=== PATIENT | female | born 1955 | race Caucasian/White ===

== ENCOUNTER → 2019-07-19 | Outpatient (CLI) | payer MEDICARE, MEDICAID ==
[2019-07-19 07:48] LABS: BUN/CREATININE RATIO 13; CARBON DIOXIDE 27 MMOL/L (21-32); CHLORIDE 97 MMOL/L (98-107); CREATININE SERUM 0.53 MG/DL (0.60-1.30); GFR ESTIMATED > 60; GLUCOSE 120 MG/DL (70-105); POTASSIUM 3.9 MMOL/L (3.6-5.0); SODIUM 137 MMOL/L (135-145)
[2019-07-19 07:49] LABS: ALANINE AMINOTRANSFERASE 21 U/L (0-55); ALBUMIN 4.5 GM/DL (3.2-4.5); ALKALINE PHOSPHATASE 88 U/L (40-136); BILIRUBIN,TOTAL 0.8 MG/DL (0.1-1.0); CALCIUM 9.8 MG/DL (8.5-10.1); TOTAL PROTEIN 7.3 GM/DL (6.4-8.2)
[2019-07-19 15:30] LABS: CHOLESTEROL 188 MG/DL (< 200); HDL CHOLESTEROL 78 MG/DL (40-60); TRIGLYCERIDES 137 MG/DL (<150); VLDL CHOLESTEROL 27 MG/DL (5-40)
== END ==
LOC: LAB FS 07:07
PROVIDERS: ATTEND Family Medicine
DX: I10 Essential (primary) hypertension (principal)
CPT/HCPCS: 36415; 80053; 80061

== ENCOUNTER → 2020-04-08 | Outpatient (CLI) | payer MEDICARE, MEDICAID ==
[2020-04-08 14:28] LABS: BUN/CREATININE RATIO 12; CALCIUM 9.6 MG/DL (8.5-10.1); CARBON DIOXIDE 28 MMOL/L (21-32); CHLORIDE 84 MMOL/L (98-107); CREATININE SERUM 0.51 MG/DL (0.60-1.30); GFR ESTIMATED > 60; GLUCOSE 129 MG/DL (70-105); POTASSIUM 3.1 MMOL/L (3.6-5.0); SODIUM 130 MMOL/L (135-145)
[2020-04-08 14:29] LABS: ALANINE AMINOTRANSFERASE 33 U/L (0-55); ALBUMIN 4.9 GM/DL (3.2-4.5); ALKALINE PHOSPHATASE 99 U/L (40-136); BILIRUBIN,TOTAL 0.7 MG/DL (0.1-1.0); TOTAL PROTEIN 7.6 GM/DL (6.4-8.2)
[2020-04-08 15:46] LABS: CHOLESTEROL 253 MG/DL (< 200); TRIGLYCERIDES 89 MG/DL (<150); VLDL CHOLESTEROL 18 MG/DL (5-40)
[2020-04-08 16:20] LABS: HDL CHOLESTEROL 128 MG/DL (40-60)
== END ==
LOC: LAB FS 13:06
PROVIDERS: ATTEND Family Medicine
DX: I10 Essential (primary) hypertension (principal); R73.9 Hyperglycemia, unspecified
CPT/HCPCS: 36415; 80053; 80061; 83036

== ENCOUNTER 2020-11-25 14:44 | Emergency (ER) | payer MEDICARE, MEDICAID ==
[~2020-11-25] VITALS: Ht 152.4 cm; Wt 46.4 kg
[2020-11-25] MEDS ORDERED: MONT10TA32 (15:04)
[2020-11-25] MEDS ORDERED: AMLO-251 (15:04)
[2020-11-25] MEDS ORDERED: HYDR25TA4 (15:04)
[2020-11-25] MEDS ORDERED: TRAZ-227 (15:04)
[2020-11-25] MEDS ORDERED: CETI10TA17 (15:04)
[2020-11-25] MEDS ORDERED: FLUT16SP22 (15:04)
[2020-11-25] MEDS ORDERED: HYDROcodone/APAP 5 MG/325 MG (LORTAB) TAB ONE (15:19)
[2020-11-25] MEDS ORDERED: HYDROcodone/APAP 5 MG/325 MG (LORTAB) TAB PO ONE (15:30)
--- NOTE | 2020-11-25 15:42 | Diagnostic Imaging Report ---
PROCEDURE: CT head, face, and cervical spine without contrast. TECHNIQUE: Multiple contiguous axial images were obtained through the head, neck, and facial bones without the use of intravenous contrast. Sagittal and coronal reformations through the cervical spine and facial bones were also performed. Auto Exposure Controls were utilized during the CT exam to meet ALARA standards for radiation dose reduction. INDICATION: Fall with head, neck, and facial injuries. COMPARISON: No prior studies are available for comparison. FINDINGS: CT HEAD: The ventricles and sulci are within normal limits. No sulcal effacement or midline shift is identified. No acute intra-axial or extra-axial hemorrhage is detected. Cisterns are patent. Visualized paranasal sinuses are clear. IMPRESSION: No acute intracranial process is detected. CT CERVICAL SPINE: Curvature and alignment of the cervical spine is normal. There is multilevel degenerative disc disease as well as degenerative facet disease. There is variable disc space narrowing, greatest at C5-C6 and C6-C7 levels with disc space narrowing and marginal spurring. Prevertebral tissues are normal. No fractures are seen. Odontoid is intact. IMPRESSION: Cervical spondylosis. No acute bony abnormality is detected. CT FACE: There is a fracture involving the right aspect of the mandible in the region of the mandibular condyle. There appears to be dislocation of the condyle anteriorly from the TMJ. Mandibular rami are intact. Left temporomandibular joint is intact. Zygomatic arches appear to be intact. Maxillary sinus faye as well as nasal bones and orbital faye appear to be intact. Both globes are unremarkable. Paranasal sinuses are clear. IMPRESSION: Fracture involving the right mandibular condyle with dislocation of the right mandibular condyle anteriorly from the TMJ. No other facial bone fracture is detected. Dictated by: Dictated on workstation # [id number]
--- NOTE | 2020-11-25 16:02 | ED Fall/Injury ---
General Chief Complaint: Upper Extremity Stated Complaint: LT ARM INJ Nursing Triage Note: Pt presents to ED reporting sent from [facility] for re-evaluation of L upper arm. Pt presents wearing a sling and having had an xray [employer]. Pt slipped on her rug and fell in the night at 0130. Pt also struck right side of jaw but denies hitting head. Pain at mid humerus shaft and bruising noted. Source: patient Exam Limitations: no limitations History of Present Illness Date Seen by Provider: Nov 25, 2020 Time Seen by Provider: 15:10 Initial Comments Here from [facility] where the they had concerns about shoulder fracture and facial injury. Apparently patient fell very early this morning about 1:30 AM after slipping on a carpet. She landed on her left elbow and her face. She has abrasion to her chin. Denies loss of consciousness. Complains of severe pain to the left shoulder and to the right jaw. They tried x-rays at the urgent care and thought they saw fracture but were not sure so sent her here for further evaluation including the head and face. Occurred: this morning Severity: moderate Injuries/Pain Location: face, upper extremity Context: slipped Loss of Consciousness: no loss of consciousness Modifying Factors: Improves With Immobilization; Worse With Movement Associated Symptoms (Fall): No Headache; Muscle Spasms, Neck Pain; No Shortness of Air Allergies and Home Medications Allergies Coded Allergies: Penicillins (Unverified Adverse Reaction, Unknown, 11/25/20) lisinopril (Unverified Adverse Reaction, Unknown, 11/25/20) Home Medications Hydrocodone Bit/Acetaminophen 1 Tab Tab, 1 TAB PO Q6H Prescribed by: SHANNAN BURKETT on 11/25/20 1614 Patient Home Medication List Home Medication List Reviewed: Yes Review of Systems Review of Systems Constitutional: see HPI; No chills, No fever Eyes: No Symptoms Reported Ears, Nose, Mouth, Throat: mouth pain, mouth swelling; denies loose teeth, denies throat pain Respiratory: No cough, No short of breath Cardiovascular: no symptoms reported Gastrointestinal: No abdominal pain, No nausea, No vomiting Genitourinary: no symptoms reported Musculoskeletal: see HPI, joint pain, muscle pain Skin: change in color, lesions Psychiatric/Neurological: Denies Headache, Denies Weakness Past Aykahlt-Zjbqzu-Gmxrml Hx Patient Social History Tobacco Use?: Yes Tobacco type used: Cigarettes Smoking Status: Current Everyday Smoker Substance use?: No Alcohol Use?: Yes Alcohol type: Beer Alcohol Frequency: Couple times a week Pt feels they are or have been: No Past Medical History Surgery/Hospitalization HX: C-sections Surgeries: Yes Section Cardiac: Yes Hypertension Family Medical History Reviewed Nursing Family Hx Physical Exam Vital Signs Vital Signs - First Documented 11/25/20 14:50 Temp 36.3 Pulse 122 Resp 20 B/P (MAP) 121/93 (102) Pulse Ox 95 O2 Delivery Room Air Capillary Refill : Less Than 3 Seconds Height, Weight, BMI Height: '" Weight: lbs. oz. kg; 19.00 BMI Method: General Appearance: WD/WN, mild distress HEENT: PERRL/EOMI, pharynx normal, other (Tenderness to the right TMJ with difficulty with range of motion of mouth to full opening due to pain. Pain with biting down. Denies any loose teeth or pain along any of the teeth. No obvious intraoral injuries.) Neck: full range of motion, supple, normal inspection Cardiovascular: regular rate, rhythm, no murmur Respiratory: no accessory muscle use, wheezing (Few scattered) Gastrointestinal: non tender, soft Back: normal inspection, no CVA tenderness, no vertebral tenderness Extremities: other (Very tender at the area of the proximal humerus on the left. Bruising noted in this area. Sensation, circulation and movement are intact to the left hand with good strength.) Neurologic/Psychiatric: alert, oriented x 3 Skin: warm/dry, ecchymosis (Left proximal humerus), other (Few abrasions to the chin) Farideh Coma Score Best Eye Response: (4) Open Spontaneously Best Verbal Response: (5) Oriented Best Motor Response: (6) Obeys Commands Progress/Results/Core Measures Results/Orders My Orders Orders - SHANNAN BURKETT MD Ct Head/Face/Cervical Wo (11/25/20 15:13) Hydrocodone/Apap 5/325 Tablet (Lortab 5 (11/25/20 15:30) Hydrocodone/Apap 5/325 Tablet (Lortab 5 (11/25/20 15:19) Humerus 2 View Left (11/25/20 15:13) Dipht,Pertuss(Acell),Tet Adult (Boostrix (11/25/20 16:15) Medications Given in ED Current Medications Medications Dose Ordered Sig/Stuart Route Start Time Stop Time Status Last Admin Dose Admin Acetaminophen/ Hydrocodone Bitart 1 ea ONCE ONCE PO 11/25/20 15:30 11/25/20 15:31 DC 11/25/20 15:21 1 EA Diphtheria/ Tetanus/Acell Pertussis 0.5 ml ONCE ONCE IM 11/25/20 16:15 11/25/20 16:16 DC 11/25/20 16:10 0.5 ML Vital Signs/I&O 11/25/20 11/25/20 14:50 15:21 Temp 36.3 36.3 Pulse 122 Resp 20 B/P (MAP) 121/93 (102) Pulse Ox 95 O2 Delivery Room Air Blood Pressure Mean: 102 Progress Progress Note : Progress Note Seen and evaluated. X-ray left humerus and CT scan of the head, face and neck. 1550: Humerus is obviously fractured. I did discuss the case with Dr. Cordero. We will go ahead and just sling it. There is some displacement. Patient was given hydrocodone 5/325 and that seems to be helping. Pending CT scan. Dr. Cordero will see the patient or she can follow-up locally with Kush Lacy APRN. This is based on patient's preference. 1700: I did discuss the case with Dr. Barbara miranda. He will see the patient in follow-up on or Monday. Discussed all of this with the patient and her son. Discharged home with return precautions. Patient verbalized understanding instructions and agreement with plan. Diagnostic Imaging Diagonstic Imaging: CT Plain Films/CT/US/NM/MRI: facial bones, c-spine, head Comments [facility], [place] NAME: BINDU TIPTON [facility] REC#: [id number] PT STATUS: REG ER : 1955 PHYSICIAN: SHANNAN BURKETT MD ADMIT DATE: 11/25/20/ER FS Signed Date of Exam:11/25/20 CT HEAD/FACE/CERVICAL WO PROCEDURE: CT head, face, and cervical spine without contrast. TECHNIQUE: Multiple contiguous axial images were obtained through the head, neck, and facial bones without the use of intravenous contrast. Sagittal and coronal reformations through the cervical spine and facial bones were also performed. Auto Exposure Controls were utilized during the CT exam to meet ALARA standards for radiation dose reduction. INDICATION: Fall with head, neck, and facial injuries. COMPARISON: No prior studies are available for comparison. FINDINGS: CT HEAD: The ventricles and sulci are within normal limits. No sulcal effacement or midline shift is identified. No acute intra-axial or extra-axial hemorrhage is detected. Cisterns are patent. Visualized paranasal sinuses are clear. IMPRESSION: No acute intracranial process is detected. CT CERVICAL SPINE: Curvature and alignment of the cervical spine is normal. There is multilevel degenerative disc disease as well as degenerative facet disease. There is variable disc space narrowing, greatest at C5-C6 and C6-C7 levels with disc space narrowing and marginal spurring. Prevertebral tissues are normal. No fractures are seen. Odontoid is intact. IMPRESSION: Cervical spondylosis. No acute bony abnormality is detected. CT FACE: There is a fracture involving the right aspect of the mandible in the region of the mandibular condyle. There appears to be dislocation of the condyle anteriorly from the TMJ. Mandibular rami are intact. Left temporomandibular joint is intact. Zygomatic arches appear to be intact. Maxillary sinus faye as well as nasal bones and orbital faye appear to be intact. Both globes are unremarkable. Paranasal sinuses are clear. IMPRESSION: Fracture involving the right mandibular condyle with dislocation of the right mandibular condyle anteriorly from the TMJ. No other facial bone fracture is detected. Dictated by: Dictated on workstation # [id number] Dict: 11/25/20 1532 Trans: 11/25/20 1602 [id number] Interpreted by: JIN VIZCAINO MD Electronically signed by: JIN VIZCAINO MD 11/25/20 1602 Diagonstic Imaging: Xray Plain Films/CT/US/NM/MRI: other (Left humerus) Comments Proximal fracture that is displaced. Departure Impression Primary Impression: Fracture of humerus, proximal, left, closed Qualified Codes: S42.202A - Unspecified fracture of upper end of left humerus, initial encounter for closed fracture Additional Impression: Fracture of right side of mandible Qualified Codes: S02.611A - Fracture of condylar process of right mandible, initial encounter for closed fracture Disposition: 01 HOME, SELF-CARE Condition: Stable Departure-Patient Inst. Decision time for Depature: 16:11 Referrals: MOUNA MOROCHO MD (PCP/Family) Primary Care Physician HELEN LACY MATTHEW DDS SCHWAB, TERRY D MD Patient Instructions: Jaw Fracture (DC), Upper Arm Fracture Add. Discharge Instructions: All discharge instructions reviewed with patient and/or family. Voiced understanding. Take medication as directed. Use sling at all times except for when showering. You may put ice packs over the areas of concern to the shoulder and face 20 minutes/h as needed to reduce swelling. You will need to follow-up locally with Kush Lacy or with Dr. Cordero in [place]. Call tomorrow for appointment for your broken arm. Call Dr. Sanchez's office in the morning for appointment for tomorrow or Monday for recheck of the jaw fracture. Let them know the case was discussed with him and he wants to see you tomorrow or Monday. Return for worse pain, fever, vomiting, weakness, breathing problems or other concerns as needed. You need to stay on a liquid or very soft diet so that you have no need to chew as this will increase the pain related to the jaw. Scripts Hydrocodone Bit/Acetaminophen (HYDROcodone/APAP 5 MG/325 MG TAB) 1 Tab Tab 1 TAB PO Q6H for Pain, #20 TAB 0 Refills Prov: SHANNAN BURKETT MD 11/25/20 Copy Copies To 1: HELEN LACY Copies To 2: JULIET SANCHEZ DDS, TIMOTHY D MD Nov 25, 2020 16:02
[2020-11-25] MEDS ORDERED: ACHD5005 PO (16:14)
[2020-11-25] MEDS ORDERED: TETANUS,DIPTH,PERTUSS P/F (BOOSTRIX) 0.5 ML VIAL IM ONE (16:15)
[2020-11-25 17:05] VITALS: BP 118/85
--- NOTE | 2020-11-25 19:30 | Diagnostic Imaging Report ---
CLINICAL HISTORY: Fall. Left arm pain. COMPARISON: None. TECHNIQUE: 2 views of the left humerus. FINDINGS: Acute transverse fracture is seen involving the proximal metadiaphysis of the left humerus. No acute fracture is seen in the included left acromion. IMPRESSION: Acute transverse fracture involving the proximal metadiaphysis of the left humerus. The evaluation is suboptimal as no true lateral was performed. Consider dedicated left shoulder radiographs to better evaluate. Dictated by: Dictated on workstation # [id number]
== END 2020-11-25 17:05 | disposition home or self-care (01) ==
LOC: EDUNIT# 14:44 → ER FS 14:45
DX: S42.202A Unspecified fracture of upper end of left humerus, initial encounter for closed fracture (principal); S02.611A Fracture of condylar process of right mandible, initial encounter for closed fracture; I10 Essential (primary) hypertension; R06.2 Wheezing; Z23 Encounter for immunization; F17.210 Nicotine dependence, cigarettes, uncomplicated; W01.10XA Fall on same level from slipping, tripping and stumbling with subsequent striking against unspecified object, initial encounter
CPT/HCPCS: 70450; 70486; 72125; 73060; 99283; A4565; 90715

== ENCOUNTER → 2020-12-21 | Outpatient (CLI) | payer MEDICARE, MEDICAID ==
[~2020-12-21] MED LIST: ACHD5005 PO; AMLO-251; CETI10TA17; FLUT16SP22; HYDR25TA4; MONT10TA32; TRAZ-227
[2020-12-21 17:12] LABS: CALCIUM 9.8 MG/DL (8.5-10.1); CREATININE SERUM 0.43 MG/DL (0.60-1.30); POTASSIUM 3.8 MMOL/L (3.6-5.0)
== END ==
LOC: LAB FS 16:26
PROVIDERS: ATTEND Family Medicine
DX: E87.6 Hypokalemia (principal)
CPT/HCPCS: 36415; 80048

== ENCOUNTER → 2021-01-27 | Outpatient (CLI) | payer MEDICARE, MEDICAID ==
[2021-01-27 16:29] LABS: POTASSIUM 2.6 MMOL/L (3.6-5.0)
[2021-01-27 16:30] LABS: CALCIUM 9.4 MG/DL (8.5-10.1); CREATININE SERUM 0.52 MG/DL (0.60-1.30)
== END ==
LOC: LAB FS 14:58
PROVIDERS: ATTEND Family Medicine
DX: E87.6 Hypokalemia (principal)
CPT/HCPCS: 36415; 80048

== ENCOUNTER → 2021-03-08 | Outpatient (CLI) | payer MEDICARE, MEDICAID ==
[~2021-03-08] MED LIST changes: -AMLO-251; +AMLO-251 PO; -HYDR25TA4; +HYDR25TA4 PO; +POTA10TA PO; -TRAZ-227; +TRAZ-227 PO
[2021-03-08 16:20] LABS: CALCIUM 9.7 MG/DL (8.5-10.1); CREATININE SERUM 0.56 MG/DL (0.60-1.30); POTASSIUM 4.4 MMOL/L (3.6-5.0)
== END ==
LOC: LAB FS 15:46
PROVIDERS: ATTEND Registered Nurse Emergency
DX: E87.6 Hypokalemia (principal)
CPT/HCPCS: 36415; 80048

== ENCOUNTER → 2021-03-26 | Outpatient (CLI) | payer MEDICARE, MEDICAID ==
[2021-03-26 15:30] LABS: CALCIUM 9.6 MG/DL (8.5-10.1); CREATININE SERUM 0.52 MG/DL (0.60-1.30); POTASSIUM 3.3 MMOL/L (3.6-5.0)
== END ==
LOC: LAB FS 14:59
PROVIDERS: ATTEND Family Medicine
DX: E87.6 Hypokalemia (principal)
CPT/HCPCS: 36415; 80048

== ENCOUNTER → 2021-05-27 | Outpatient (CLI) | payer MEDICARE, MEDICAID ==
[~2021-05-27] MED LIST changes: +MONT-40; -MONT10TA32
[2021-05-27 16:03] LABS: POTASSIUM 4.8 MMOL/L (3.6-5.0)
[2021-05-27 16:04] LABS: CALCIUM 9.5 MG/DL (8.5-10.1); CREATININE SERUM 0.52 MG/DL (0.60-1.30)
== END ==
LOC: LAB FS 15:14
PROVIDERS: ATTEND Family Medicine
DX: E87.6 Hypokalemia (principal)
CPT/HCPCS: 36415; 80048

== ENCOUNTER → 2022-01-12 | Outpatient (CLI) | payer MEDICARE, MEDICAID ==
[2022-01-12 16:45] LABS: ALANINE AMINOTRANSFERASE 17 U/L (0-55); ALKALINE PHOSPHATASE 98 U/L (40-136); BILIRUBIN,TOTAL 0.5 MG/DL (0.1-1.0); BUN/CREATININE RATIO 11; CALCIUM 9.6 MG/DL (8.5-10.1); CARBON DIOXIDE 25 MMOL/L (21-32); CHLORIDE 102 MMOL/L (98-107); CREATININE SERUM 0.61 MG/DL (0.60-1.30); GFR ESTIMATED 99; GLUCOSE 105 MG/DL (70-105); POTASSIUM 4.4 MMOL/L (3.6-5.0); SODIUM 138 MMOL/L (135-145)
[2022-01-12 16:46] LABS: ALBUMIN 4.6 GM/DL (3.2-4.5)
[2022-01-12 22:37] LABS: TRIGLYCERIDES 64 MG/DL (<150); VLDL CHOLESTEROL 13 MG/DL (5-40)
[2022-01-12 22:42] LABS: CHOLESTEROL 173 MG/DL (< 200)
[2022-01-12 22:43] LABS: HDL CHOLESTEROL 59 MG/DL (40-60)
== END ==
LOC: LAB FS 14:57
PROVIDERS: ATTEND Family Medicine
DX: Z12.11 Encounter for screening for malignant neoplasm of colon (principal); E87.6 Hypokalemia; I10 Essential (primary) hypertension
CPT/HCPCS: 36415; 80053; 80061